=== PATIENT | female | born 1955 | race Caucasian/White ===

== ENCOUNTER 2017-04-03 07:20 | Day surgery (SDC) | payer BC, SELFPAY ==
[2017-04-03] VITALS (15 sets, daily range): BP systolic 89–127; BP diastolic 42–76; PULSE 58–82; RESP 16–20; TEMP 36.4; O2SAT 95–99; BMI 30.5
--- NOTE | 2017-04-03 | IR_ITS ---
CARDIAC CATHETERIZATION DATE OF CATHETERIZATION:04/03/2017 9:12 AM PROCEDURES: 1. Left heart catheterization 2. Left ventriculogram 3. Selective coronary angiogram 4. FFR to the right coronary artery INDICATION FOR TEST: 1. Coronary artery disease 2. Angina pectoris Informed consent was obtained prior to the procedure. COMPLICATIONS: None ESTIMATED BLOOD LOSS: Less than 10 ml. TECHNIQUE: One percent lidocaine used to anesthetize the right anterior aspect of the wrist. The right radial artery was accessed via the Seldinger technique. A 6 [place] sheath was placed in the right radial artery. 2.5 mg of verapamil, 800 mcg of nitroglycerin and 3000 units of heparin was given arterially. A trap catheter was used to perform left heart catheterization left ventriculogram and selective coronary angiography. At the end of the diagnostic angiogram and additional 5000 units of heparin was administered intravenously producing an ACT of 84 seconds. And ZAPITANOari right guide catheter was placed in the ascending aorta and an FFR wire was normalized. The FFR with wire was placed distally and adenosine was infused per protocol. The FFR index to 0.85. At the end of the procedure the apparatus was removed the sheath was removed good hemostasis was achieved using TR banding patient transferred the postop holding area in stable condition ANGIOGRAPHIC RESULTS: 1. The left main artery normal 2. The left anterior descending artery has a proximal 20-30% stenosis immediately proximal to the proximal LAD stent. The stent itself is widely patent free of in-stent restenosis. Distally sequential 40% stenoses are present followed by additional 30-40% stenosis in the mid to distal segment 3. The circumflex artery is nondominant and gives rise to a ramus intermedius which is moderate in size and has 30% mid vessel stenoses. The circumflex artery itself has tendon 20% stenoses 4. The right coronary artery is a dominant vessel and has a mid vessel 60% concentric stenosis with 30% distal stenoses 5. The POST ventriculogram reveals normal 65% 6. The left ventricular end-diastolic pressure 10 mmHg IMPRESSION: 1. Patent stent in the proximal LAD with mild to moderate nonflow limiting disease both proximally and distal to the stent as described above 2. Angiographically moderate to severe yet still indeterminate stenosis in the mid dominant right coronary artery which produced an FFR index of 0.85 3. Normal ejection fraction 4. Normal left ventricular end-diastolic pressure PLAN: 1. Medical management 2. Maximize antianginal anginal medications 3. LDL less than 55 4. Chronic rehabilitation 5. Determine etiology of anemia
[2017-04-03 08:06] LABS: Basophils % 0.9 % (0.1-2.0); Eosinophils # 0.1 K/mm3 (0.0-0.4); Hematocrit 27.3 % (37.0-47.0); Hemoglobin 8.9 g/dL (12.2-16.2); Lymphocytes # 1.2 K/mm3 (0.7-4.5); Lymphocytes % 30.3 K/mm3 (10-50); Mean Corpuscular HGB Conc 32.7 g/dL (31.8-35.4); Mean Corpuscular Hemoglobin 30.6 pg (27.0-31.2); Mean Corpuscular Volume 93.4 fl (81-99); Mean Platelet Volume 8.9 fl (7.4-10.4); Monocytes # 0.2 K/mm3 (0.1-1.0); Monocytes % 4.9 % (1.7-9.3); Neutrophils # 2.5 K/mm3 (1.8-7.8); Neutrophils % 61.9 % (37.0-80.0); Platelet Count 86 K/mm3 (142-424); Red Blood Count 2.92 M/mm3 (4.20-5.40); Red Cell Distribution Width 15.1 % (11.5-17.5); White Blood Count 4.1 K/mm3 (4.8-10.8)
[2017-04-03 08:08] LABS: Anion Gap 11.1 mEq/L (5-15); Blood Urea Nitrogen 16 mg/dL (7-18); Carbon Dioxide 28 mmol/L (21.0-32.0); Chloride 106 mmol/L (98-107); Creatinine Clearance Estimated 71 mL/min (0-300); Creatinine,Serum 0.77 mg/dL (0.55-1.02); Estimated Glomerular Filt Rate 76 ml/min (>60); GFR (African American) 92 ML/MIN (>60); Glucose 85 mg/dL (74-106); Potassium 4.1 mmoL/L (3.5-5.1); Sodium 141 mmol/L (136-145)
--- NOTE | 2017-04-03 08:13 | CA_ITS ---
PROCEDURE: 2-D M-mode and color Doppler study INDICATIONS FOR THE TEST: Chest pain X COPD Heart Murmur Tobacco SmokingX Palpitations Fatigue Syncope Edema HypertensionXDiabetes Mellitus Rheumatic Fever SOB TORRES Obesity HyperlipidemiaX Family History HD Additional History PATIENT INFORMATION HEIGHT: 62 WEIGHT:167 GENDER: Female B/P:108/80 2-D/M-MODE INTERPRETATION: 2-D MEASUREMENTS OBSERVED VALUES IN CMS Right Ventricular Dimension (RVDd) 2.5 Interventricular Septum (Thickness)(IVsd) .9 Left Ventricular Internal Dimensions(LVIDd) 5.1 Left Ventricular Posterior Wall (Thickness)(LVPWd) .9 Aortic Root 2.8 Aortic Cusp Separation 1.5 Left Atrial Dimensions (LAD) 2.9 2D 1. Left atrium is mildly enlarged, left ventricle is normal size, there is mild qualitative concentric left ventricular hypertrophy, visually estimated ejection fraction 55% with no obvious regional wall motion abnormality. 2. The right atrium and right ventricle are normal size and contractility. 3. The aortic valve is minimally thickened and fibrosed. 4. The mitral and tricuspid valve leaflets are minimally thickened. 5. The pulmonic valve is poorly visualized. 6. No significant pericardial effusion noted. DOPPLER INTERROGATION: Doppler interrogation of the aortic, mitral and tricuspid valvular presence of mild mitral and tricuspid regurgitation, tricuspid and jet velocity is insufficient for calculation of the right ventricular systolic pressure, diastolic parameters are inconclusive. CONCLUSION: 1. Mildly enlarged left atrium, normal left ventricular size, mild qualitative concentric left ventricular hypertrophy, visually estimated ejection fraction 55% with no obvious regional wall motion abnormality, diastolic parameters are inconclusive. 2. Mild mitral and tricuspid regurgitation. 3. No significant pericardial effusion noted.
[2017-04-03 10:10] LABS: CATHL Activated Clotting Time 284 SEC (74-125)
== END 2017-04-03 13:38 | disposition home or self-care (01) ==
LOC: CATHLAB 07:23
PROVIDERS: PCP Family Medicine; Visit Provider Internal Medicine
DX: I25.119 Atherosclerotic heart disease of native coronary artery with unspecified angina pectoris (principal); I11.9 Hypertensive heart disease without heart failure; I65.23 Occlusion and stenosis of bilateral carotid arteries; R53.83 Other fatigue
CPT/HCPCS: 80048; 85025; 85347; 93306; 93458; 93571; 99152; 99153; C1725; C1769; J0153; J1644